=== PATIENT | male | born 1955 | race Caucasian/White ===

== ENCOUNTER 2022-10-01 14:41 | Outpatient (REF) | payer MEDICARE, BC, OTHER, SELFPAY ==
--- NOTE | ~2022-10-01 | XR_ITS ---
EXAMINATION: XR BILATERAL KNEES CLINICAL INFORMATION: Reason for Exam M25.569 - Pain in unspecified knee COMPARISON: None TECHNIQUE: 1 view of the bilateral knees. 2 views of the left knee. FINDINGS: RIGHT KNEE: No acute fracture or dislocation. Joint spaces are maintained. Soft tissues are unremarkable. LEFT KNEE: No acute fracture or dislocation. Joint spaces are maintained. Patellar tendon enthesopathy. Small suprapatellar joint effusion. Atherosclerotic vascular calcification. XR/XR knee LT 2V IMPRESSION: * No acute osseous abnormality. * Left knee is remarkable for patellar tendon enthesopathy with a small suprapatellar joint effusion. * Limited view of the right is unremarkable.
--- NOTE | ~2022-10-01 | XR_ITS ---
EXAMINATION: XR BILATERAL KNEES CLINICAL INFORMATION: Reason for Exam M25.569 - Pain in unspecified knee COMPARISON: None TECHNIQUE: 1 view of the bilateral knees. 2 views of the left knee. FINDINGS: RIGHT KNEE: No acute fracture or dislocation. Joint spaces are maintained. Soft tissues are unremarkable. LEFT KNEE: No acute fracture or dislocation. Joint spaces are maintained. Patellar tendon enthesopathy. Small suprapatellar joint effusion. Atherosclerotic vascular calcification. XR/XR knee standing BI IMPRESSION: * No acute osseous abnormality. * Left knee is remarkable for patellar tendon enthesopathy with a small suprapatellar joint effusion. * Limited view of the right is unremarkable.
== END 2022-10-01 14:42 | disposition home or self-care (01) ==
LOC: HO.HOSX 14:41
PROVIDERS: Visit Provider Physician Assistant
DX: M23.92 Unspecified internal derangement of left knee (principal)
CPT/HCPCS: 73560; 73565; 99202

== ENCOUNTER 2022-10-23 15:29 | Outpatient (REF) | payer MEDICARE, SELFPAY ==
--- NOTE | ~2022-10-23 | MR_ITS ---
EXAMINATION: MR KNEE WITHOUT CONTRAST, LEFT CLINICAL INFORMATION: Left knee pain following injury on 09/06/2022. Twisting injury with posterior pain. Pain now radiates anteromedially. COMPARISON: Left knee radiographs dated 10/01/2022. TECHNIQUE: MRI of the knee without contrast was performed using routine sequences on a high-field scanner. FINDINGS: MENISCI: Medial Meniscus: Complete radial tear of the posterior horn measuring up to 1.1 cm in ML dimension and located approximately 0.7 cm from the posterior root insertion. The posterior root is significantly thickened and irregular. The meniscal body is medially extruded with oblique tibial articular surface tearing extending through the periphery and a small posteromedial meniscal flap. Lateral Meniscus: Intact. LIGAMENTS: Cruciate: Intact. Collateral: Mild edema adjacent to the medial collateral ligament which may be related to a meniscal tear or indicate a grade 1 sprain. Intact fibular collateral ligament. EXTENSOR MECHANISM: Intact. ARTICULAR CARTILAGE/BONE: Patellofemoral Compartment: Mild medial patellar articular cartilage signal heterogeneity. Tiny marginal osteophytes. Medial Compartment: Intact articular cartilage. Subchondral linear low-T1/low-T2 signal centrally within the medial tibial plateau measuring 1.3 x 1.4 cm (AP by ML). Prominent adjacent marrow edema with mild periosteal reaction/edema. Findings are consistent with an acute, nondisplaced subchondral fracture. Lateral Compartment: Intact articular cartilage. JOINT FLUID AND BURSAE: Small joint effusion and small Mcnair's cyst. Fluid extending within the fascial planes adjacent to the Mcnair's cyst, consistent with leak or rupture. MR/MR knee LT wo con IMPRESSION: 1. Complete radial tear of the medial meniscus posterior horn measuring 1.1 cm in ML dimension and located approximately 0.7 cm from the posterior root insertion. Medial extrusion of the meniscal body with oblique tibial articular surface tearing extending through the periphery of the meniscal body and a small posteromedial meniscal flap. 2. Acute, nondisplaced subchondral fracture within the central aspect of the medial tibial plateau measuring up to 1.4 cm with prominent adjacent marrow edema. 3. Mild patellofemoral arthrosis. Small joint effusion and small Mcnair's cyst. Fluid within the fascial planes adjacent to the Mcnair's cyst, consistent with leak or rupture. 4. Edema adjacent to the medial collateral ligament which may be related to a meniscal tear or indicate a grade 1 sprain.
== END 2022-10-23 15:30 | disposition home or self-care (01) ==
LOC: HO.MRI 15:29
PROVIDERS: PCP Physician Assistant; Visit Provider Physician Assistant
DX: M23.92 Unspecified internal derangement of left knee (principal)
CPT/HCPCS: 73721

== ENCOUNTER → 2022-10-30 09:13 | Outpatient (BNVA) | payer MEDICARE, SELFPAY | PROVIDERS: PCP Physician Assistant; Visit Provider Physician Assistant | DX: S83.242A Other tear of medial meniscus, current injury, left knee, initial encounter (principal); S82.132A Displaced fracture of medial condyle of left tibia, initial encounter for closed fracture | CPT/HCPCS: 99212 ==